=== PATIENT | male | born 1985 | race Two or more races ===

== ENCOUNTER → 2024-04-25 | Outpatient (CLI) | payer MEDICAID, SELFPAY ==
--- NOTE | 2024-04-25 14:14 | XR_ITS ---
Examination: Right knee 2 views Technique one AP lateral right knee 2 views Exam date and time: April 25, 2024 1433 hours INDICATIONS: Knee pain months. FINDINGS: Wires traverse the patella to the tibial tubercle No fracture Moderate osteopenia Mild to moderate tricompartment osteoarthritis, most prominent lateral patellofemoral joints IMPRESSION: Mild to moderate tricompartment osteoarthritis
== END | disposition home or self-care (01) ==
LOC: CDIM 13:49
PROVIDERS: Referring Provider Specialist; Visit Provider Specialist
DX: M17.11 Unilateral primary osteoarthritis, right knee (principal)
CPT/HCPCS: 73560